=== PATIENT | female | born 1985 | race Caucasian/White ===

== ENCOUNTER 2025-05-28 18:34 | Emergency (ER) | payer MEDICAID, SELFPAY ==
--- NOTE | ~2025-05-28 | US_ITS ---
CLINICAL HISTORY: RUQ Pain Tenderness Exam: Ultrasound of the gallbladder. Comparison: None provided. Findings: Gallbladder is only mildly distended. No gallbladder wall thickening, pericholecystic fluid, or cholelithiasis identified. Negative sonographic Maldonado's sign. Common bile duct within normal limits. Impression: Negative gallbladder ultrasound. This document has been electronically signed by: Art Pierre MD on 05/28/2025 22:06:13
--- NOTE | ~2025-05-28 | CT_ITS ---
CLINICAL HISTORY: RLQ Pain R Flank Pain CT abdomen and pelvis with contrast Comparison: US - US ABDOMEN LIMITED - 05/28/25 21:12 EDT Findings: CT of the abdomen: Lung bases are clear. No acute bony abnormality. No focal hepatic lesions. Hepatic veins and portal vein are patent. Spleen, pancreas, gallbladder, adrenal glands, kidneys are unremarkable for acute findings. Moderate ingested contents within the stomach. Small bowel loops are of normal caliber. Small central mesenteric lymph nodes all measure less than 5 mm in short axis. There is mild haziness within the central mesenteric fat as well. CT pelvis: Appendix is normal. No colonic wall thickening or pericolonic inflammatory stranding. No dilated small bowel. No free fluid or free air. There is diastasis of the rectus abdominis muscle measuring 3.3 cm. Portions of the anterior aspect of the uterine fundus which extends into this diastasis. Additionally, there is a 9 mm anterior fascial defect within the upper pelvis near this diastasis. No bowel is seen within this. IMPRESSION: 1. Small mesenteric lymph nodes can be seen with mesenteric adenitis or mild enteritis. 2. Negative CT of the appendix. 3. Diastasis of the rectus abdominis muscle with fat containing ventral hernia. This document has been electronically signed by: Art Pierre MD on 05/28/2025 23:29:37
--- NOTE | 2025-05-28 18:48 | ED.ABDPAIN ---
HPI - Abdominal Pain General Chief Complaint: Abdominal Pain Stated Complaint: pain in abdomen Time Seen by Provider: 05/28/25 20:27 Source: patient Mode of arrival: ambulatory Limitations: language barrier ([employer] iPad utilized) History of Present Illness ED Provider: Dex DUPREE HPI narrative: The patient is a 39-year-old female presenting to the ED for evaluation of right-sided abdominal pain which has been occurring intermittently for the past few weeks, but became constant and more severe 2 days ago. The patient reports pain radiates from her right upper quadrant into the right lower quadrant and into her right flank. The patient denies associated fever/chills, nausea, vomiting, chest pain, shortness of breath, recent sick contacts, or recent trauma. Patient denies dysuria, hematuria, vaginal discharge, or irregular vaginal bleeding. The patient reported diarrhea during triage however denies this during this provider's interview. The patient reports history of a 13 years ago, and hemorrhoidectomy 12 years ago, denies other surgical abdominal history. Patient reports she was seen at urgent care today for her symptoms, reports underwent urinalysis which was ?all clear ? and referred to the emergency department for ?an ultrasound?. Related Data Allergies Allergy/AdvReac Type Severity Reaction Status Date / Time Penicillins (PCN) Allergy Unknown Verified 05/28/25 18:54 Review of Systems Review of Systems Yes all other systems are reviewed and are negative PMFSH Social History Social History Smoked in Last 30 Days: No Use of substances other than those prescribed or required for medical reasons: No Advance Directives: No Advance Directives Information Provided: No Physical Exam ED Vital Signs: Vital Signs - 24 hr 05/28/25 18:49 05/28/25 22:15 05/29/25 00:20 Temperature 98.1 F 97.8 F Pulse Rate 87 78 82 Respiratory Rate 16 16 14 Blood Pressure 148/78 H 121/80 125/83 Pulse Oximetry 100 98 96 Oxygen Delivery Method Room Air Room Air Room Air BMI result Body Mass Index 32.6 CONSTITUTIONAL: The patient appears non-toxic, well nourished and in no acute distress. Vital signs as documented. HEAD: Atraumatic, normocephalic. EYES: EOMs grossly intact, pupils equal, conjunctiva clear, no exudate. ENT: Nares patent, no discharge. Airway patent, no audible stridor, visible mucosa is pink and moist without noted lesions. NECK: Trachea is midline, no obvious masses or gross abnormalities. CHEST: Symmetric movement, normal appearance. LUNGS: LS present and CTAB, no w/r/r. Non-labored work of breathing. CARDIAC: Regular Rhythm, S1/S2 appreciated, no murmurs, rubs or gallops. ABDOMEN: Abdomen soft x4 quadrants, positive tenderness to palpation of the right upper quadrant and right lower quadrant, negative rebound, negative Rovsing's, negative Maldonado's, no palpable masses or organomegaly. : Deferred. EXTREMITIES: Normal tone, moves all extremities spontaneously without reported pain. No obvious acute injury or deformity noted. NEURO: Alert and oriented x3, CN II-XII appear grossly intact. Cerebellar Functioning grossly intact. No obvious sensory or motor deficits. Speech clear and appropriate. PSYCH: normal affect, appropriate eye contact, fluid speech, with appropriate response to questioning. No reported suicidality or homicidality. SKIN: Warm, dry, color appropriate, normal turgor. No rashes noted. Course Course Course Narrative: This is an RME: Additional HPI, ROS, PE not included below will be deferred to primary provider. RME assessment and note performed by: Inge Neff PA-C This is a [id number] speaking female, with a hx of chronic joint pain , who presents to the ER with concerns of right sided flank pain x 2 weeks. Reports pain was intermittent up until yesterday, now constant. Reports diarrhea. No nausea or vomiting. Denies chance of . hx of kidney stones 15 years ago. No urinary symptoms. Plan: Labs, UA, further Er eval needed Medical Decision Making Medical Decision Making MDM Narrative: 8:51 PM 05/28/2025 (Shaw DUPREE): The patient is a 39-year-old female presenting to the ED for evaluation of right-sided abdominal pain which has been occurring intermittently for the past few weeks, but became constant and more severe 2 days ago. The patient reports pain radiates from her right upper quadrant into the right lower quadrant and into her right flank. The patient denies associated fever/chills, nausea, vomiting, chest pain, shortness of breath, recent sick contacts, or recent trauma. Patient denies dysuria, hematuria, vaginal discharge, or irregular vaginal bleeding. The patient reported diarrhea during triage however denies this during this provider's interview. The patient reports history of a 13 years ago, and hemorrhoidectomy 12 years ago, denies other surgical abdominal history. Patient reports she was seen at urgent care today for her symptoms, reports underwent urinalysis which was ?all clear ? and referred to the emergency department for ?an ultrasound?. The patient's exam demonstrates right upper quadrant and right lower quadrant abdominal tenderness, negative Maldonado's, negative Rovsing's, negative rebound, patient reports the pain she has been experiencing is greater in the right upper quadrant, however upon exam reports tenderness is greater in the right lower quadrant. The patient is otherwise well-appearing, nontoxic. Laboratory evaluation demonstrates no leukocytosis, anemia, electrolyte abnormality, or ROSA. The patient's LFTs are unremarkable, lipase is normal. The patient's urinalysis from urgent care is not available in our EMR, patient has been requested to provide an additional urine sample, and we will add on hCG and right upper quadrant ultrasound. If ultrasound is nondiagnostic the patient will be sent for CT abdomen to rule out other abdominal pathology. 12:12 AM 05/29/2025 (Shaw DUPREE): Patient's ultrasound showed a normal gallbladder, CT has resulted and shows small mesenteric lymph nodes potentially associated with mesenteric adenitis versus mild enteritis. The appendix is normal. The patient is requesting discharge home, patient will be treated with Toradol and Tylenol, and discharge instructions to follow up with PCP. Admission/Observation Consideration of admission/observation: Escalation of care including admission/observation considered Lab Data MDM Lab Attestation statement: I reviewed the patient's lab results. 05/28/25 19:36 05/28/25 19:36 Labs: Lab Results 05/28/25 05/28/25 Range/Units 19:36 22:29 WBC 8.7 (4.8-10.8) X10*3/uL RBC 4.41 (4.20-5.50) X10*6/uL Hgb 12.3 (12.0-16.0) g/dl Hct 37.3 (37.0-47.0) % MCV 84.6 (80.0-98.0) fL MCH 27.9 (27.0-33.0) pg MCHC 33.0 (31.0-35.0) g/dl RDW 12.8 (11.0-16.0) % Plt Count 390 (160-400) X10*3/uL MPV 9.4 (9.4-12.3) fL Immature Gran % (Auto) 0.1 (0.0-0.4) % Neut % (Auto) 59.3 (45-73) % Lymph % (Auto) 31.8 (20-40) % [place] % (Auto) 6.5 (2-11) % Eos % (Auto) 1.8 (0-4) % Baso % (Auto) 0.5 (0-2) % Lymph # (Auto) 2.8 (1.2-4.9) X10*3/uL [place] # (Auto) 0.6 (0.1-1.2) X10*3/uL Eos # (Auto) 0.2 (0.0-0.4) X10*3/uL Baso # (Auto) 0.0 (0.0-0.2) X10*3/uL Abs Immat Gran (auto) 0.01 (0.00-0.03) X10*3/uL Absolute Neuts (auto) 5.1 (2.0-8.3) x10*3/uL Absolute Nucleated RBC 0.000 (0.0-0.012) X10*3/uL Nucleated RBC % (auto) 0.0 (0.0-0.2) /100WBC Sodium 139 (135-145) mmol/L Potassium 4.2 (3.3-5.1) mmol/L Chloride 108 (96-108) mmol/L Carbon Dioxide 27 (22-29) mmol/L Anion Gap 8 L (12-20) BUN 7 L (9-16) mg/dL Creatinine 0.66 (0.5-1.4) mg/dL Estim Creat Clear Calc 127.2 Estimated GFR > 60 Random Glucose 109 (60-115) mg/dL Calcium 8.5 (8.4-10.2) mg/dL Magnesium 2.2 (1.6-2.6) mg/dL Total Bilirubin 0.1 (0.0-1.0) mg/dL Direct Bilirubin < 0.2 (0.0-0.5) mg/dL AST 17 (5-31) U/L ALT 16 (0-31) U/L Alkaline Phosphatase 81 (39-117) U/L Total Protein 7.6 (6.5-8.0) g/dL Albumin 4.1 (3.5-5.0) g/dL Lipase 17 (8-78) U/L Beta HCG, Quant < 2 mIU/mL Urine Color Yellow Urine Appearance Clear Urine pH 8.0 (5.0-9.0) Ur Specific [place] 1.020 (1.005-1.025) Urine Protein Negative (Neg-Trace) mg/dL Urine Glucose (UA) Negative (Negative) mg/dL Urine Ketones Negative (Negative) mg/dL Urine Blood Trace H (Negative) Urine Nitrite Negative (Negative) Ur Leukocyte Esterase Negative (Negative) Urine RBC 3-5 H (0-2) /HPF Urine WBC 0-5 (0-5) /HPF Ur Squamous Epith Cells 0-2 (0-2) /HPF Urine Bacteria None Seen (None Seen) Hyaline Casts 0-2 (0-2) /LPF Radiology Impression Discussion of test interpretation with radiology: I have reviewed the radiologist's reading. Radiologist Impression: Exam: Ultrasound of the gallbladder. Comparison: None provided. Findings: Gallbladder is only mildly distended. No gallbladder wall thickening, pericholecystic fluid, or cholelithiasis identified. Negative sonographic Maldonado's sign. Common bile duct within normal limits. Impression: Negative gallbladder ultrasound. This document has been electronically signed by: Art Pierre MD on 05/28/2025 22:06:13 CT abdomen and pelvis with contrast Comparison: US - US ABDOMEN LIMITED - 05/28/25 21:12 EDT Findings: CT of the abdomen: Lung bases are clear. No acute bony abnormality. No focal hepatic lesions. Hepatic veins and portal vein are patent. Spleen, pancreas, gallbladder, adrenal glands, kidneys are unremarkable for acute findings. Moderate ingested contents within the stomach. Small bowel loops are of normal caliber. Small central mesenteric lymph nodes all measure less than 5 mm in short axis. There is mild haziness within the central mesenteric fat as well. CT pelvis: Appendix is normal. No colonic wall thickening or pericolonic inflammatory stranding. No dilated small bowel. No free fluid or free air. There is diastasis of the rectus abdominis muscle measuring 3.3 cm. Portions of the anterior aspect of the uterine fundus which extends into this diastasis. Additionally, there is a 9 mm anterior fascial defect within the upper pelvis near this diastasis. No bowel is seen within this. IMPRESSION: 1. Small mesenteric lymph nodes can be seen with mesenteric adenitis or mild enteritis. 2. Negative CT of the appendix. 3. Diastasis of the rectus abdominis muscle with fat containing ventral hernia. This document has been electronically signed by: Art Pierre MD on 05/28/2025 23:29:37 Medications Administered Discontinued Medications Generic Name Dose Route Start Last Admin Trade Name Freq PRN Reason Stop Dose Admin Acetaminophen 975 mg 05/29/25 00:08 05/29/25 00:22 Acetaminophen 325 Mg Tablet PO 05/29/25 00:09 975 mg ONCE ONE Administration Iohexol 100 ml 05/28/25 22:54 05/28/25 22:58 Iohexol 350 Mg/Ml 100 Ml Infus..Btl IV 05/28/25 22:55 85 ml ONCE ONE Administration Ketorolac Tromethamine 15 mg 05/29/25 00:08 05/29/25 00:22 Ketorolac Tromethamine 15 Mg/Ml Vial IVPUSH 05/29/25 00:09 15 mg ONCE ONE Administration Discharge Plan Discharge Clinical Impression: Mesenteric adenitis Patient Disposition: Home, Self-Care Instructions: Mesenteric Adenitis (ED) Additional Instructions: Thank you for choosing [facility]'s Emergency Department for your care today. Thankfully your laboratory evaluation, gallbladder ultrasound, and CT of your abdomen today show no evidence of an acute surgical process requiring surgical intervention, admission to the hospital or continued ED observation, and it is safe to discharge you home. Your CT does show inflamed mesenteric lymph nodes consistent with mesenteric adenitis versus enteritis. Both of these are inflammatory and not infectious processes which should improve with time and anti-inflammatories such as ibuprofen and Tylenol. There is no indication for antibiotics. You should take alternating (staggered) doses of ibuprofen 600mg and Tylenol 1000mg every 4 hours as needed for any additional pain. Please stay well hydrated and get plenty of rest. Please follow up with your primary care physician for re-evaluation, additional management of your symptoms, and continued preventative care. If you do not have a primary care physician, please call the [facility] at [phone] to establish a new primary care physician. While waiting to establish your new primary care physician, you can call our [facility] at [phone] for non-emergency needs. Please return to the emergency department if you develop a severe or sudden change in your symptoms, a fever over 100.4 that does not improve with Tylenol or Ibuprofen, recurrent vomiting, or any other new or worsening symptoms or concerns. Print Language: Sinhala
[2025-05-28 18:49] VITALS: BP 148/78; PULSE 87; RESP 16; TEMP 36.7; O2SAT 100; BMI 32.6
[2025-05-28 19:41] LABS: Hematocrit 37.3 % (37.0-47.0); Hemoglobin 12.3 g/dl (12.0-16.0); Imm Gran Abs Auto 0.01 X10*3/uL (0.00-0.03); Imm Gran Pct Auto 0.1 % (0.0-0.4); Lymphocytes Absolute Auto 2.8 X10*3/uL (1.2-4.9); MANUAL DIFF FLAG NO; Mean Corpuscular HGB Conc 33.0 g/dl (31.0-35.0); Mean Corpuscular Hemoglobin 27.9 pg (27.0-33.0); Mean Corpuscular Volume 84.6 fL (80.0-98.0); NRBC Abs Auto 0.000 X10*3/uL (0.0-0.012); NRBC Pct Auto 0.0 /100WBC (0.0-0.2); Platelet Count 390 X10*3/uL (160-400); Red Blood Count 4.41 X10*6/uL (4.20-5.50); White Blood Count 8.7 X10*3/uL (4.8-10.8)
[2025-05-28 19:59] LABS: Alanine Aminotransferase 16 U/L (0-31); Albumin Level 4.1 g/dL (3.5-5.0); Alkaline Phosphatase 81 U/L (39-117); Anion Gap 8 (12-20); Aspartate Amino Transferase 17 U/L (5-31); Blood Urea Nitrogen 7 mg/dL (9-16); Calcium 8.5 mg/dL (8.4-10.2); Carbon Dioxide 27 mmol/L (22-29); Chloride 108 mmol/L (96-108); Creatinine Clr Calc Pharmacy 127.2; Estimated Glomerular Filt Rate > 60; Lipase 17 U/L (8-78); Magnesium 2.2 mg/dL (1.6-2.6); Potassium 4.2 mmol/L (3.3-5.1); Sodium 139 mmol/L (135-145); Total Protein 7.6 g/dL (6.5-8.0)
--- OUTSIDE RECORDS SUMMARY | 2025-05-28 20:55 | XMS_ITS | Clinical Summary ---
Author Organization [address] [facility] Address [address] [place] [address] Phone Care Team Providers Care Research Assistant Name Role Phone Renae Maza Primary Care Provider + Allergies Active Allergy Reactions Criticality Noted Date Comments Penicillin G Medium 10/12/2016 Other Reaction(s): Rash/Dermatitis Medications acetaminophen (TYLENOL) 500 mg tablet acetaminophen 500 mg tablet TAKE 2 TABLETS BY MOUTH THREE TIMES DAILY NEEDED 04/08/20 19 Active biotin 5 mg tablet Take 1 Tablet by mouth. 05/13/20 21 Active cholecalciferol (VITAMIN D-3) 1,250 mcg (50,000 unit) capsule cholecalciferol (vitamin D3) 1,250 mcg (50,000 unit) capsule TAKE 1 CAPSULE BY MOUTH ONE DAY A WEEK 01/15/20 21 Active chorionic gonadotropin (PREGNYL) 10,000 unit injection Pregnyl 10,000 unit intramuscular solution Active clindamycin (CLEOCIN) 150 mg capsule Take 450 mg by mouth. 04/03/20 17 Active clomiPHENE (CLOMID) 50 mg tablet clomiphene citrate 50 mg tablet TAKE 2 TABLETS BY MOUTH DAILY FOR 5 DAYS 2 TABLET. BY MOUTH DAILY 3-7 OF CYCLE Active cyclobenzaprine (FLEXERIL) 10 mg tablet TAKE 1 TABLET BY MOUTH DAILY NEEDED 11/11/19 22 Active diazePAM (VALIUM) 5 mg tablet diazepam 5 mg tablet TAKE 1 TABLET BY MOUTH THREE TIMES DAILY NEEDED MUSCLE SPASM Active famotidine (PEPCID) 20 mg tablet famotidine 20 mg tablet TAKE 1 TABLET BY MOUTH TWICE DAILY BEFORE A MEAL FOR HEARTBURN/STOMACH 01/15/20 21 Active gabapentin (NEURONTIN) 100 mg capsule gabapentin 100 mg capsule TAKE 1 TO 2 CAPSULES BY MOUTH DAILY NEEDED 02/03/20 20 Active ibuprofen (ADVIL,MOTRIN) 800 mg tablet ibuprofen 800 mg tablet TK 1 T PO ONCE 04/08/20 19 Active ketoconazole (NIZORAL) 2 % shampoo APPLY TOPICALLY TO THE SKIN DAILY NEEDED 11/11/19 22 Active letrozole (FEMARA) 2.5 mg tablet letrozole 2.5 mg tablet TAKE 3 TABLETS BY MOUTH DAILY FOR 5 DAYS 09/03/19 20 Active lidocaine (LIDODERM) 5 % patch APPLY 1 PATCH TOPICALLY TO AFFECTED AREA OF PAIN ON SKIN ONCE DAILY FOR 12 HOURS ON AND 12 HOURS OFF 09/11/19 20 Active melatonin 10 mg tablet TAKE 1 TABLET BY MOUTH EVERY NIGHT AT BEDTIME 11/18/19 22 Active meloxicam (MOBIC) 7.5 mg tablet TAKE 1 TABLET BY MOUTH DAILY NEEDED 09/08/19 22 Active metFORMIN (GLUCOPHAGE) 500 mg tablet TAKE 1 TABLET BY MOUTH TWICE DAILY 11/04/19 22 Active naproxen sodium (ANAPROX) 550 mg tablet naproxen sodium 550 mg tablet TAKE 1 TABLET BY MOUTH TWICE DAILY FOR 15 DAYS NEEDED FOR PAIN WITH FOOD Active nystatin (MYCOSTATIN) 100,000 unit/gram powder Apply topically. 0 19 Active oxyCODONE (ROXICODONE) 5 mg immediate release tablet oxycodone 5 mg tablet TK 1 T PO Q 4 TO 6 H PRN FOR MODERATE PAIN Active oxymetazoline (Nasal [place], oxymetazoline,) 0.05 % nasal spray 1 [place] by Nasal route. 03/10/20 19 Active pantoprazole (PROTONIX) 20 mg EC tablet pantoprazole 20 mg tablet,delayed release TK 1 T PO QAM B [place] FOR HEARTBURN Active prazosin (MINIPRESS) 1 mg capsule prazosin 1 mg capsule 09/03/19 20 Active sucralfate (CARAFATE) 1 gram tablet Take 1 g by mouth. 05/13/20 21 Active SUMAtriptan (IMITREX) 100 mg tablet sumatriptan 100 mg tablet TAKE 1 TABLET BY MOUTH NEEDED ONLY 02/25/20 20 Active tiZANidine (ZANAFLEX) 4 mg tablet take 1 tablet by mouth every 6 hours if needed for muscle spasm 07/30/20 19 Active topiramate (TOPAMAX) 200 mg tablet topiramate 200 mg tablet Active venlafaxine XR (EFFEXOR-XR) 150 mg 24 hr capsule venlafaxine ER 150 mg capsule,extended release 24 hr 01/05/20 17 Active Active Problems Problem Noted Date Diagnosed Date H. 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 Chronic low back pain 10/13/2016 PTSD (post-traumatic stress disorder) 10/13/2016 Overview (08/05/2024): Followed by therapist @[facility] Riccardo Yanez, Celina Stern [facility] Vitamin D deficiency 10/13/2016 Social History Tobacco Use Types Packs/Day Years Used Date Smoking Tobacco: Never Tobacco Cessation:Counseling Given: Not Answered Alcohol Use Standard Drinks/Week Comments Never 0 (1 standard drink = 0.6 oz pur e alcohol) Comments Unknown Sex and Gender Information Value Date Recorded Sex Assigned at Not on file Legal Sex Female 9:43 AM EST Gender Identity Not on file Sexual Orientation Not on file Obstetrics History Last Filed Vital Signs Vital Sign Reading Time Taken Comments Blood Pressure 122/81 09/29/2024 1:52 PM EST Pulse 100 09/29/2024 1:52 PM EST Temperature 36.5 C (97.7 F) 09/29/2024 1:52 PM EST Respiratory Rate - - Oxygen Saturation - - Inhaled Oxygen Concentration - - Weight 86.4 kg (190 lb 8 oz) 09/29/2024 1:52 PM EST Height 154.9 cm (5' 1 ) 09/29/2024 1:52 PM EST Body Mass Index 35.99 09/29/2024 1:52 PM EST Plan of Treatment Health Maintenance Due Date Last Done Comments HPV Vaccines (1 - 3-dose SCDM series) 2013 Cervical Cancer Screening: Pap Smear 11/01/2019 10/31/2016, 10/31/2016 COVID-19 Vaccine (3 - Pfizer risk series) 02/14/2021 01/17/2021, 12/24/2020 Social Influencers of Health Screening 07/04/2022 Depression Screening 2024 Influenza Vaccine (#1) 2025 3, 04/10/2017, 08/10/2016 Cholesterol Screening (Lipid Panel) 03/06/2029 03/06/2024, 03/06/2024, 03/01/2022, Additional history exists DTaP,Tdap,and Td Vaccines (5 - Td or Tdap) 10/29/2033 10/30/2023, 08/31/2022, 06/01/2016, Additional history exists RSV Immunization Adult Patients (1 - 1-dose 75+ series) 2061 HIV Screening Completed 05/12/2019 Hepatitis C Screening Completed 06/14/2022, 019 MMR Vaccines Aged Out 11/16/2022, 08/07, 04/12/2022, Additional history exists No longer eligible based on patient's age to complete this topic Hepatitis B Vaccines Completed 06/27/2024, 08/10/2016, 06/01/2016 HIB Vaccines Aged Out No longer eligi ble based on patient's age to complete this topic Hepatitis A Vaccines Aged Out No long er eligible based on patient's age to complete this topic IPV Vaccines Aged Out No longer eligi ble based on patient's age to complete this topic Meningococcal ACWY Vaccine Aged Out N o longer eligible based on patient's age to complete this topic Meningococcal B Vaccine Aged Out No l onger eligible based on patient's age to complete this topic Pneumococcal Vaccine: Pediatrics (0 to 5 Years) and At-Risk Patients (6 to 49 Years) Aged Out No longer eligible based on patient's age to complete this topic RSV Immunization Patients Under 20 months Aged Out No longer eligible based on patient's age to complete this topic Varicella Vaccines Aged Out No longer eligible based on patient's age to complete this topic Procedures Procedure Name Priority Date/Time Associated Diagnosis Comments LIPID PANEL Routine 01/21/2021 HM HPV Routine 10/31/2016 from Last 3 Months or Most Recently Relevant to Health Maintenance Results * Lipid panel (01/21/2021) LDL/HDL Ratio 0 Comment:no interpretation, a bstracted Triglycerides 0 mg/dL Comment:no interpretation, a bstracted Cholesterol 0 mg/dL Comment:no interpretation, a bstracted HDL 0 mg/dL Comment:no interpretation, a bstracted LDL Cholesterol 0 mg/dL Comment:no interpretation, a bstracted Blood Venous blood specimen / Unknown Historical Provider LAB BLOOD ORDERABLES Jo-Ann l Result * Cervical Cancer Screening: HPV (10/31/2016) Cervical Cancer Screening: HPV negative, abstracted Historical Provider HEALTH MAINTENANCE Final Result from Last 3 Months or Most Recently Relevant to Health Maintenance Insurance MEDICAID - [place] Care Teams Research Assistant Relationship Specialty Start Date End Date Renae Maza PA [address] [facility] [address] [place] [address] PCP - General Primary Care 06/25/24
--- OUTSIDE RECORDS SUMMARY | 2025-05-28 20:55 | XMS_ITS | Clinical Summary ---
Author Organization [facility] Address [address] [place] [address] Care Team Providers Care Assembler Small Products Name Role Phone Neyda Salas LACTATION CONSULTANT Primary Care Provider [phone] Source Comments PLEASE NOTE, if this patient is a minor, it may be UNLAWFUL to discuss sensitive information that is contained in these records (such as FAMILY PLANNING, MENTAL HEALTH or SUBSTANCE ABUSE) with the minor patient's parent or other person without the patient's specific authorization.[facility] Allergies Active Allergy Reactions Criticality Noted Date Comments Latex 07/10/2022 Itchiness Itchiness Penicillins Rash High 08/10/2016 Medications venlafaxine (EFFEXOR-XR) 150 mg 24 hr capsuleIndicati ons:Anxiety and depression Take 150 mg by mouth every morning PER PSYCH 0 7 Active traZODone (DESYREL) 100 mg tabletIndicatio ns:Insomnia due to anxiety and fear Take 100 mg by mouth nightly at bedtime PER PSYCH 0 7 Active back braceIndication s:Chronic bilateral low back pain with sciatica, sciatica laterality unspecified LUMBAR SUPPORT BACK BRACE. Dx: M54.40 1 Each 8 Active miscellaneous medical supply miscIndications :Acute carpal tunnel syndrome, right by miscellaneous route nightly at bedtime RIGHT NEOPRENE WRIST SPLINTS. Dx: G56.01. Wear nightly. 1 Each 9 Active oxymetazoline (VICKS SINEX ULTRA FINE MIST 12) 0.05 % mistIndications :Upper respiratory tract infection, unspecified type Place 1 [place] into the nostril(s) 2 (two) times daily 14.7 mL 9 Active nystatin (MYCOSTATIN) 100,000 unit/gram powderIndicatio ns:Candidal intertrigo Apply topically 4 (four) times daily 15 g 1 9 Active ibuprofen 800 mg tabletIndicatio ns:Chronic bilateral low back pain with sciatica, sciatica laterality unspecified Take 1 Tab by mouth 3 (three) times daily as needed for pain Take with food. Stop ibuprofen 600 mg and meloxicam. 90 Tab 1 9 Active acetaminophen (TYLENOL) 500 mg tablet Take 1 Tab by mouth every 6 (six) hours as needed for pain 90 Tab 9 Active tiZANidine (ZANAFLEX) 4 mg tabletIndicatio ns:Chronic bilateral low back pain with sciatica, sciatica laterality unspecified take 1 tablet by mouth every 6 hours if needed for muscle spasm 90 Tab 1 9 Active miscellaneous medical supply miscIndications :Bilateral carpal tunnel syndrome,Fibrom yalgia affecting hand,Chronic bilateral low back pain with sciatica, sciatica laterality unspecified by miscellaneous route once daily Order Shower chair with handle, daily. Dx:G56.03,M79.7, M54.40. Need: 5 yr. 1 Each 9 Active lidocaine (LIDODERM) 5 % patchIndication s:LUQ pain APPLY 1 PATCH TOPICALLY TO AFFECTED AREA OF PAIN ON SKIN ONCE DAILY FOR 12 HOURS ON AND 12 HOURS OFF 0 Active prazosin (MINIPRESS) 1 mg capsuleIndicati ons:Fatigue, unspecified type TAKE 1 CAPSULE BY MOUTH ONCE DAILY AT BEDTIME. 0 Active miscellaneous medical supply miscIndications :Bilateral carpal tunnel syndrome by miscellaneous route once daily Left and Right NEOPRENE WRIST SPLINT. M79.9. Wear daily. Dx: G56.03, M79.7, Need: lifetime 2 Each 0 Active gabapentin (NEURONTIN) 100 mg capsule TK 1 TO 2 CS PO D PRN 0 Active triamcinolone acetonide (KENALOG) 0.5 % creamIndication s:Rash Apply topically 2 (two) times daily To lower legs 30 g 2 0 Active cholecalciferol , vitamin D3, (VITAMIN D3) 1,250 mcg (50,000 unit) capsuleIndicati ons:Mild vitamin D deficiency Take 1 Capsule by mouth once a week 4 Capsule 4 1 Active miscellaneous medical supply miscIndications :Use of cane as ambulatory aid,Arthralgia, unspecified joint,Chronic pain of multiple joints,Toe pain, chronic, right Order toilet seat raiser with handle, Use daily. Need: lifetime 1 Each 1 Active biotin 5 mg tabIndications: Hair loss Take 1 Tablet by mouth once daily For hair 90 Tablet 1 1 Active metroNIDAZOLE (METROGEL) 0.75 % vaginal gelIndications: BV (bacterial vaginosis) INSERT 1 APPLICATORFUL VAGINALLY TWICE DAILY FOR 5 DAYS 140 g 2 Active meclizine (ANTIVERT) 25 mg tabletIndicatio ns:Vertigo Take 1 Tablet by mouth every 8 (eight) hours as needed for nausea or dizziness 30 Tablet 1 2 Active ferrous sulfate 325 mg (65 mg iron) tabletIndicatio ns:Low serum iron Take 1 Tablet by mouth once daily with breakfast 90 Tablet 1 2 Active LORazepam (ATIVAN) 2 mg tablet Take 2 mg by mouth 2 Active PNV,calcium 09-ltus-jwhtj acid ( VITAMIN PLUS LOW IRON) 27 mg iron- 1 mg tab Vitamins Plus Low Iron 27 mg iron-1 mg tablet TAKE 1 TABLET BY MOUTH EVERY DAY Active cyclobenzaprine (FLEXERIL) 10 mg tablet Take 10 mg by mouth once daily as needed 2 Active diazePAM (VALIUM) 5 mg tablet diazepam 5 mg tablet TAKE 1 TABLET BY MOUTH THREE TIMES DAILY NEEDED MUSCLE SPASM Active metFORMIN (GLUCOPHAGE) 500 mg tablet Take 500 mg by mouth 2 Active clotrimazole-be tamethasone (LOTRISONE) 1-0.05 % creamIndication s:Tinea pedis of right foot Apply topically 2 (two) times daily At feet 30 g 1 3 Active pantoprazole (PROTONIX) 40 mg EC tabletIndicatio ns:Gastroesopha geal reflux disease with esophagitis without hemorrhage Take 1 Tablet by mouth 2 (two) times daily For heartburn 180 Tablet 4 Active SUMAtriptan succinate (IMITREX) 100 mg tabletIndicatio ns:Headaches Take 1 Tablet by mouth once daily as needed for migraine 15 Tablet 2 5 Active Active Problems Problem Noted Date Diagnosed Date History of Helicobacter pylori infection 023 Requires assistance with activities of daily radha ing (ADL) 09/20/2022 H. pylori infection 06/21/2022 Vertigo 02/28/2022 PCOS (polycystic ovarian syndrome): sees fertili ty obgyn 08/14/2021 Right wrist pain 08/14/2021 Use of cane as ambulatory aid 01/14/2021 Tinnitus of right ear, TM perforation small 07/07 DUB (dysfunctional uterine bleeding) 10/15/2018 Otalgia, right ear 05/11/2018 Overview (06/17/2019): 04/17/18 - Seen by ENT for R ear pain x 4 months. Small Tm perforation inferiorly. The otalgia most likely due to pain from TMJ inflammation. F/U dental. IF no resolution of pain, will consider reeval with flexible laryngoscopy. F/U 6 months for TM 02/27/19 - ENT F/U: Pt's otalgia is 2/2/ TMJ. May benefit from use of warm compress application, massage, and NSAID use for relief of her TMJ dysfunction. She may benefit from use of a dental appliance to prevent bruxism in the future. Recommend MRA of the head for eval of her pulsatile tinnitus. 03/14/19 - MRA - negative 04/23/19 - ENT F/U: MRA results reviewed (unremarkable). Can use diuretic to decrease volume of blood vessels to reduce whooshing sound. Tx: HCTZ 25 mg. Labs in 3 weeks. F/U 6 wks. 06/10/19 - ENT F/U: reviewed normal MRI result, referred to vestibular rehab. D/c HCTZ. F/U 3 mos Ventral hernia without obstruction or gangrene 0 04/15/2018 Overview (02/11/2019): 03/23/18 - Pt seen at [facility] c/o RLQ abd pain. CT abdomen/pelvis showed small right infraumbilical anterior abdominal wall hernia containing mesenteric fat with mild surrounding inflammatory changes suggesting acute process. This may explain the patient's site of focal tenderness and can be correlated with physical examination. No herniating bowel loops. Pt was discharged to f/u gen surg for eval. 05/13/18 - Gen surg eval: considering small size of hernia and minimal sxs, recommend watchful waiting. 01/09/19 - Seen at [facility] ED c/o abdominal pain, nausea, and diarrhea for 6-7 episodes since this AM. CT abdomen/Pelvis W/ contrast: no acute findings with exception of mild wall thickening suggestive of mild colitis. Does have mild leukocytosis on labs likely due to viral gastroenteritis and dehydration, feeling better with IV fluids. Pain in both feet 02/07/2018 Infertility - F/U [facility] 8 Overview (10/13/2017): 10/12/16 - DIRECTOR MUSEUM OR ZOO [facility]: seen for infertility and DUB suspicious for PCOS. Plans: Labs ordered (TCH, prolactin, DHEA-S, CMP, FSH, A1c, serum test, testosterone free & total) - HIGH free and total testosterone. DHEA-S WNL. 10/31/16 - [employer] [facility] ZOO F/U: Orderd placed: PAP & HPV, referral to external adult genetic counseling. 03/01/17 - DIRECTOR MUSEUM OR ZOO F/U: c/o b/l pelvic pain and dysuria and currently menstruating. Labs ordered: Factor 5, anticardiolipin An, Lupus anticoagulant, Gc, chlamydia. BD affirm, Urine Cx. F/U in 1 month labs. 03/22/17: DIRECTOR MUSEUM OR ZOO F/U infertility. Plan: continue to conceive and if unsuccessful w/i 6 months - 1 year consider [facility] referral. Fibromyalgia 10/18/2016 Overview (10/18/2016): Dx via [facility] with tender points 10/10/16 Dr. Rankin PTSD (post-traumatic stress disorder) 08/17/2016 Overview (10/04/2016): [facility] Depression, major, recurrent, severe with psycho sis 08/17/2016 Overview (08/17/2016): [facility] Vitamin D deficiency 08/11/2016 Anxiety and depression 08/10/2016 Insomnia due to anxiety and fear 08/10/2016 Obesity (BMI 30.0-34.9) 08/10/2016 Thyroiditis 05/02/2016 Chronic bilateral low back pain 05/02/2016 Overview (04/03/2018): Started 200910/02/17 - [facility] c/o low back pain requesting injections. Gabapentin #90 refilled. XRAYS of lumbar and thoracic spine ordered - both neg. 03/12/18 - 04/22/18: [facility] PT 3x/wk x 6 week SAB (spontaneous ) x 2 in [place] with C- section x 1 05/02/2016 Immunizations Immunization Administration Dates Next Due Flu, Preservative Free 04/10/2017 Hep B, Adult/Adol (XDNSQTZ-V-WAIIQ/RECOMBIVAX-ADULT) 08/10/2016,06/01/2016 Hep B,adult,adjuvanted (HEPLISAV) 06/27/2024 INFLUENZA, SEASONAL, INJECTABLE 08/31/2022,08/10 MMR (MMR II/Priorix) 11/16/2022,09/02/19 23,04/12/2022,2015,12/25/2015 TDAP 10/30/2023,08/31/2022,05/02/2016 Td (adult), 5 Lf tetanus tox oid (Tenivac), preservative free 06/01/2016 Social History Tobacco Use Types Packs/Day Years Used Date Smoking Tobacco: Never Smokeless Tobacco: Never Tobacco Cessation:Counseling Given: Yes Alcohol Use Standard Drinks/Week Comments No 0 (1 standard drink = 0.6 oz pur e alcohol) Social Connections Answer Date Recorded Connectedness 0 06/19/2023 Financial Resource Strain Answer Date R ecorded Financial Resource Strain 0 2022 Stress Answer Date Recorded Stress 0 06/19/2023 Physical Activity Answer Date Recorded Physical Activity 0 11/24/2020 Food Insecurity Answer Date Recorded Food 0 06/19/2023 Transportation Needs Answer Date Record ed Transportation 0 06/19/2023 Housing Stability Answer Date Recorded Housing 0 06/19/2023 Safety and Environment Answer Date David rded How often does anyone, inclu ding family and friends, physically hurt you? 1 06/27/2024 Utilities Answer Date Recorded Utilities 0 06/19/2023 Employment Answer Date Recorded Stress 0 11/24/2020 Comments No Sex and Gender Information Value Date Recorded Sex Assigned at Female 05/22/2017 10:45 AM PDT Legal Sex Female 8:57 AM PDT Gender Identity Female 05/22/2017 10:45 AM PDT Sexual Orientation Straight 05/22/2017 10 :45 AM PDT Last Filed Vital Signs Vital Sign Reading Time Taken Comments Blood Pressure 98/80 11/25/2024 1:22 PM EDT Pulse 97 11/25/2024 1:22 PM EDT Temperature 36.8 C (98.3 F) 11/25/2024 1:22 PM EDT Respiratory Rate 16 11/25/2024 1:22 PM EDT Oxygen Saturation 99% 11/25/2024 1:22 PM EDT Inhaled Oxygen Concentration - - Weight 87.9 kg (193 lb 12.8 oz) 11/25/2024 1:22 PM EDT Height 157.5 cm (5' 2 ) 10/03/2024 1:58 PM EST Body Mass Index 35.45 10/03/2024 1:58 PM EST Plan of Treatment Upcoming Encounters Date Type Department Care Team (Late st Contact Info) Description 06/30/2025 1:00 PM EST Office Visit [facility] [address] [phone] Neyda Salas FNP [address] [place] [address] Theron Dick [address] [place] [id number] Health Maintenance Due Date Last Done Comments Anxiety Screening 1986 HPV Screening (self-collect) 1986 HPV Screening 1986 Imm-HPV (1 - 3-dose SCDM series) 2013 Depression Monitoring 12/31/2024 10/03/2024 , 06/27/2024, 03/04/2024, Additional history exists Xkt-LJCIR-01 (3 - season) 2025 021, 12/24/2020 Imm-Influenza (#1) 2025 08/31/2022, 0 04/10/2017, 08/10/2016 Relationship Safety Screening/Counseling 06/27/2025 06/27/2024, 06/19/2023, 06/14/2022, Additional history exists Annual Wellness (Adult): Indicated (All Coverage) 11/25/2025 11/25/2024, 06/27/2024, 06/19/2023, Additional history exists Hypertension Screening (#1) 11/25/2025 Tobacco Screening 11/25/2025 11/25/2024 Lipid Screening 03/06/2027 03/06/2024, 06/06, 03/01/2022, Additional history exists Diabetes Screening 06/27/2027 06/27/2024, 0 03/06/2024, 01/16/2023, Additional history exists Pap Smear 11/26/2027 11/25/2024, 12/28/2017 Cervical Cancer Screening 11/25/2029 Pap + HPV 11/25/2029 11/25/2024, 12/28/2017 Imm-DTaP/Tdap/Td (5 - Td or Tdap) 10/29/2033 10/30/2023, 08/31/2022, 06/01/2016, Additional history exists HIV Screening Completed 05/12/2019, 07/06, 05/02/2016 Syphilis Screening Discontinued 05/12/2019, 07/19/2018 Hepatitis C Screening Completed 06/14/2022 , 06/14/2022, 07/29/2019, Additional history exists Imm-Hepatitis B Completed 06/27/2024, 12/2016, 06/01/2016 Alcohol and Drug Screen Completed 10/03/19, 03/04/2024, 06/19/2023, Additional history exists Cervical Ablation/Cold-Knife Conization Discontinued Cervical Cryotherapy Discontinued Colposcopy Discontinued Excision/Leep Discontinued HPV Genotyping Discontinued Vaginal Pap Discontinued Vulvoscopy Discontinued Procedures Procedure Name Priority Date/Time Associated Diagnosis Comments THINPREP IMAGING PAP, HPV MRNA E6/E7 RFLEX HPV 16,18/45 CT/NG Routine 11/25/2024 1:53 PM EDT Encounter for Papanicolaou smear of vagina as part of routine gynecological examination Encounter for screening for human papillomavirus (HPV) HGBA1C W/MPG Routine 06/27/2024 3:45 PM EST Routine general medical examination at a [facility] facility LIPID PANEL Routine 03/06/2024 1:33 PM EDT Dyslipidemia HEPATITIS C AB W/RFLX HCV RNA, QT, RT PCR Routine 06/14/2022 10:01 AM EST Routine general medical examination at a [facility] facility Dyspepsia Gastroesophageal reflux disease with esophagitis without hemorrhage ANTIBODY HIV-1&HIV-2 SINGLE RESULT Routine 05/12/2019 3:30 PM EDT Neuropathy Mild vitamin D deficiency FTA-ABS, SERUM Routine 05/12/2019 3:30 PM EDT Neuropathy from Last 3 Months or Most Recently Relevant to Health Maintenance Results * THINPREP IMAGING PAP, HPV MRNA E6/E7 RFLEX HPV 16,18/45 CT/NG (11/25/2024 1:53 PM EDT) CHLAMYDIA TRACHOMATIS RNA, TMA NOT DETECTED NOT DETECTED [facility] NEISSERIA GONORRHOEAE RNA, TMA NOT DETECTED NOT DETECTED [facility] COMMENT [facility] CLINICAL INFORMATION See Note [facility] Comment:None given LMP See Note [facility] Comment:11/07/24 PREV. PAP See Note [facility] Comment:NONE GIVEN PREV. BX See Note [facility] Comment:NONE GIVEN SOURCE See Note [facility] Comment:Cervix, Endocervix STATEMENT OF ADEQUACY See Note [facility] Comment: Satisfactory for evaluation. Endocervical/transformation zone component present. INTERPRETATION/RESU LT See Note [facility] Comment: Cytology Results: Negative for intraepithelial lesion or malignancy. COMMENT See Note [email or web address] [facility] Comment: This Pap test has been evaluated with computer assisted technology. FIXED ASSETS ACCOUNTANT See Note [facility] [email or web address] [facility] Comment: DCR, CT(ASCP) CT screening location: [address] [address] COMMENT [email or web address] [facility] HPV MRNA E6/E7 Not Detected Not Detected [email or web address] [facility] Comment: Methodology: Bobbin Coil Winder-Mediated Amplification This assay detects E6/E7 viral messenger RNA (mRNA) from 14 high-risk HPV types (16,18,31,33,35,39,45,51,52,56,58,59,66,68). Cervical sources are required for HPV testing. If a vaginal source from a patient who has had a total hysterectomy with removal of cervix was submitted, please contact the testing laboratory for alternative testing options. For additional information, please refer to http://Colectica.Offerti/faq/KBR403a8 (This link if provided for information/ educational purposes only.) Swab Cervix uteri structure / Unknown 11/25/2024 1:53 PM EDT 11/26/2024 9:48 AM EDT Narrative [employer] - 11/27/2024 10:57 AM EDT EXPLANATORY NOTE: The Pap is a screening test for cervical cancer. It is not a diagnostic test and is subject to false negative and false positive results. It is most reliable when a satisfactory sample, regularly obtained, is submitted with relevant clinical findings and history, and when the Pap result is evaluated along with historic and current clinical information. The analytical performance characteristics of this assay, when used to test SurePath(TM) specimens have been determined by [employer]. The modifications have not been cleared or approved by the FDA. This assay has been validated pursuant to the CLIA regulations and is used for clinical purposes. For additional information, please refer to https://Colectica.Offerti/faq/YPM072 (This link is being provided for information/ educational purposes only.) Maria Isabel Hartley MD LAB - PATHOLOGY AND CYTOLOGY AMB ULATORY Final Result [employer] [address] [place] [address] [place] [address], [email or web address] [facility] [address] [place] [address] * HGBA1C W/MPG (06/27/2024 3:45 PM EST) Pathologist [facility] HEMOGLOBIN A1C 5.5 <5.7 % of total Hgb [employer] [facility] Comment: For the purpose of screening for the presence of diabetes: <5.7% Consistent with the absence of diabetes 5.7-6.4% Consistent with increased risk for diabetes (prediabetes) > or =6.5% Consistent with diabetes This assay result is consistent with a decreased risk of diabetes. Currently, no consensus exists regarding use of hemoglobin A1c for diagnosis of diabetes in children. According to [place] Diabetes Association (ADA) guidelines, hemoglobin A1c <7.0% represents optimal control in non- diabetic patients. Different metrics may apply to specific patient populations. Standards of Medical Care in Diabetes(ADA). MEAN PLASMA GLUCOSE 119 mg/dL (calc) [employer] [facility] Blood Blood / Unknown 06/27/2024 3 :45 PM EST 06/27/2024 3:45 PM EST Narrative [employer] [facility] - 06/28/2024 3:24 AM EST FASTING:NO Neyda Salas [facility] LAB - BLOOD DRAW Final Result [employer] [address] [address], [employer] [address] [address] * (ABNORMAL) LIPID PANEL (03/06/2024 1:33 PM EDT) [facility] CHOLESTEROL, TOTAL 208(H) <200 mg/dL An[employer] [facility] HDL CHOLESTEROL 45(L) > OR = 50 mg/dL [facility] TRIGLYCERIDES 147 <150 mg/dL Ante [facility] LDL-CHOLESTEROL 136(H) 99 mg/dL (calc) [facility] Comment: Reference range: <100 Desirable range <100 mg/dL for primary prevention; <70 mg/dL for patients with CHD or diabetic patients with > or = 2 CHD risk factors. LDL-C is now calculated using the Hugo-Amador calculation, which is a validated novel method providing better accuracy than the Friedewald equation in the estimation of LDL-C. Hugo DOBSON et al. JAN. 2013;310(19): 3550-9355 (http://education.Darby Smart/faq/PNY458) CHOL/HDLC RATIO 4.6 <5.0 (calc) [facility] NON-HDL CHOLESTEROL 163(H) <130 mg/dL (calc) [facility] Comment: For patients with diabetes plus 1 major ASCVD risk factor, treating to a non-HDL-C goal of <100 mg/dL (LDL-C of <70 mg/dL) is considered a therapeutic option. Blood Blood / Unknown 03/06/2024 1 :33 PM EDT 03/06/2024 1:33 PM EDT Narrative [employer] [facility] - 03/07/2024 4:38 AM EDT FASTING:YES BrightNestadonis Salas [facility] LAB - BLOOD DRAW Final Result Performing Organization Address [facility] de Phone Number [employer] [address] [address], [employer] [address] [address] * (ABNORMAL) HEPATITIS C AB W/RFLX HCV RNA, QT, RT PCR (06/14/2022 10:01 AM EST) HEPATITIS C ANTIBODY REACTIVE( A) NON-REACT PAMELA [employer] [facility] SIGNAL TO CUT-OFF 1.91(H) <1.00 QU [employer] Comment: Based on this result, the sample will be tested for HCV RNA by a Nucleic Acid Amplification Test (NAAT) to determine if the patient has a current active infection. Blood Blood / Unknown 06/14/2022 1 0:01 AM EST 06/14/2022 10:02 AM EST BrightNestadonis Salas [facility] LAB - BLOOD DRAW Edited Result - Final Performing Organization Address [facility] Co de Phone Number [employer] [address] [place] [address], [employer] [address] [place] [address] [address]LOOR,[place] [address] * FTA-ABS, SERUM (05/12/2019 3:30 PM EDT) TREPONEMAL AB NEGATIVE NEGATIVE [facility] 05/12/2019 3:30 PM EDT 05/12/2019 3:59 PM EDT [facility] - 05/12/2019 8:19 PM EDT [employer], [place] [address] Carding Machine Feeder - Betzaida Mann MD PT ID [id number] ORD# [id number] Lizeth Porter PA-C LAB - BLOOD DRAW Final Resul t Performing Organization Address City/[facility]/ZIP [place] [address], * HIV-1 & HIV-2 ANTIBODIES (05/12/2019 3:30 PM EDT) Pathologist [facility] HIV 1 AND 2 ANTIBODY SCREEN NEGATIVE NEGATIVE [facility] Comment: This assay is a 4th generation assay allowing for earlier detection of HIV infection by detecting the presence of the HIV-1 p24 antigen as well as the traditional antibodies to HIV type 1 (including group O) and type 2. Use of a 4th generation assay is the current CDC recommendation for HIV screening. Blood specimen (specimen) Blood / Unknown 05/12/2019 3:30 PM EDT 05/12/2019 3:59 PM EDT [facility] - 05/12/2019 8:47 PM EDT [employer], a member of [address] [address] Carding Machine Feeder - Betzaida Mann MD PT ID [id number] ORD# [id number] Lizeth Porter PA-C LAB - BLOOD DRAW Final Resul t Performing Organization Address City/[facility]/ZIP Co de Phone Number [address] [address] [phone] from Last 3 Months or Most Recently Relevant to Health Maintenance Insurance [employer] DENTAL Member Subscriber Plan / Payer (Ef fective 2017-Present) Name:Jarrett Vital Relation to Subscriber:Self Name:Jarrett Vital Payer ID:[id number] Group ID:Not on file Type:Other Address: [address] [place] [address] [facility] [employer] DENT[employer] Member Subscriber Plan / Payer (Ef fective 2018-Present) Name:Jarrett Vital Relation to Subscriber:Self Name:Jarrett Vital Payer ID:[id number] Group ID:Not on file Type:Medicaid Address: [address] [place], [place] [address] [address] [employer] Member Subscriber Plan / Payer (Ef fective 2023-Present) Name:Jarrett Vital Relation to Subscriber:Self Name:Jarrett Vital Payer ID:[id number] Group ID:Not on file Type:Managed Medicaid Address: [facility] [id number] [place] [address] Care Teams Assembler Small Products Relationship Specialty Start Date End Date Neyda Salas FNP [address] [place] [id number] PCP - General Internal Medicine 06/17/19
--- OUTSIDE RECORDS SUMMARY | 2025-05-28 20:55 | XMS_ITS | Clinical Summary ---
Author Organization [facility] Address [address] [place] [id number] Care Team Providers Care Bank Guard Name Role Phone Unknown Primary Care Provider [phone] Allergies Active Allergy Reactions Criticality Noted Date Comments Penicillins Unknown/Patient and Family Unable to Define Medium 03/31/2017 Medications SUMAtriptan (IMITREX) 100 MG tablet Take 1 tablet by mouth as needed. Active traZODone (DESYREL) 100 MG tablet Take 2 tablets by mouth nightly. Active venlafaxine (EFFEXOR-XR) 150 MG 24 hr capsule Take 1 capsule by mouth daily. Active acetaminophen (TYLENOL) 500 MG tablet Take 500 mg by mouth Every 4 (four) to 6 (six) hours as needed for mild pain. Active clindamycin (CLEOCIN) 150 MG capsuleIndicati ons:Dental abscess Take 3 capsules (450 mg total) by mouth every 8 (eight) hours around the clock. 72 capsule 04/03/2017 Active Active Problems Problem Noted Date Diagnosed Date Dental abscess 03/31/2017 Immunizations Immunization Administration Dates Next Due Tdap 03/31/2017() Family History Medical History Relation Name Comments Hypertension Mother Relation Name Status Comments Mother Social History Tobacco Use Types Packs/Day Years Used Date Smoking Tobacco: Never Smokeless Tobacco: Never Alcohol Use Standard Drinks/Week Comments No 0 (1 standard drink = 0.6 oz pur e alcohol) Comments Unknown Sex and Gender Information Value Date Recorded Sex Assigned at Not on file Legal Sex Female 11:47 PM EDT Gender Identity Not on file Sexual Orientation Not on file Last Filed Vital Signs Vital Sign Reading Time Taken Comments Blood Pressure 120/60 04/03/2017 11:20 AM EDT Pulse 78 04/03/2017 11:20 AM EDT Temperature 36.7 C (98.1 F) 04/03/2017 11:20 AM EDT Respiratory Rate 18 04/03/2017 11:20 AM EDT Oxygen Saturation 99% 04/03/2017 11:20 AM EDT Inhaled Oxygen Concentration - - Weight 89.4 kg (197 lb) 03/31/2017 4:25 PM EDT Height 116 cm (3' 9.67 ) 03/31/2017 4:25 PM EDT Body Mass Index 66.41 03/31/2017 4:25 PM EDT Plan of Treatment Health Maintenance Due Date Last Done Comments Hepatitis C Virus Screening 1986 HIV Screening 1999 DTaP/Tdap/Td Vaccines (1 - Tdap) 2005 Hepatitis B Vaccines (1 of 3 - 19+ 3-dose series) 2005 Pap Smear (Ages 21-65) 2007 Influenza Vaccine 03/06/2025 08/10/2016 COVID-19 Vaccine ( - 2023-2 5 season) 2025 HPV Vaccines (No Doses Required) Completed Pneumococcal Vaccine: Pediat trevor (0-5 Years) and At-Risk Patients (6 to 49 Years) Aged Out No longer eligible b ased on patient's age to complete this topic Insurance * Guarantor: Jarrett Vital Account Type Relation to Patient Date of Phone Billing Address Personal/Family Self 1985 [address] [place] [address] MEDICAID OUT OF STATE [facility] Member Subscriber Plan / Payer (Ef fective 2017-Present) Name:Jarrett Vital Relation to Subscriber:Self Name:Jarrett Vital Payer ID:Not on file Group ID:Not on file Type:Not on file Address: [address] [place] [address] * Guarantor: Jarrett Vital Account Type Relation to Patient Date of Phone Billing Address Personal/Family Self 1985 [address] [place] [address] Advance Directives * Full Code (Latest Code Status on File) Date Activated Date Inactivated Comments 03/31/2017 5:04 AM Question Answer Comments Decision Thoroughly Discussed with: Unable to Di scuss Care Teams Bank Guard Relationship Specialty Start Date End Date Unknown Unknow Provider Address PCP - General 03/31/17
--- OUTSIDE RECORDS SUMMARY | 2025-05-28 20:55 | XMS_ITS | Clinical Summary ---
Author Organization [facility] Address [address] [place] [address] Care Team Providers Care Spray Operator Name Role Phone Unavailable Primary Care Provider Unavailabl e Social History Tobacco Use Types Packs/Day Years Used Date Smoking Tobacco: Never Assessed Comments Unknown Sex and Gender Information Value Date Recorded Sex Assigned at Not on file Legal Sex Female 9:17 PM EDT Gender Identity Not on file Sexual Orientation Not on file Plan of Treatment Health Maintenance Due Date Last Done Comments Depression Screening 1986 SDOH Screening 1986 Disability Screening 1986 Alcohol/Substance Use Screening 1998 Tobacco Screening 1998 Family Planning (PISQ) 2001 HPV Vaccines (1 - 3-dose series) 2001 Hepatitis C Screening 2004 Pap Smear 2007 Cervical Cancer Screening 2016 HPV/Cotest 2016 COVID-19 Vaccine ( season) 2025 Influenza Vaccine (#1) 2025 , 04/10/2017, 08/10/2016 DTaP/Tdap/Td Vaccines (5 - Td or Tdap) 10/29/2033 10/30/2023, 08/31/2022, 06/01/2016, Additional history exists Zoster Vaccines (1 of 2) 2036 RSV Patients and Patients Aged 60 years or older (1 - 1-dose 75+ series) 2061 HIV Screening Completed 05/12/2019 Hepatitis B Vaccines Completed 06/27/2024, 08/10/2016, 06/01/2016 [...] patient's age to complete this topic Meningococcal Vaccine Aged Out No srikanth patsy eligible based on patient's age to complete this topic Pneumococcal Vaccine: Pediatrics (0 to 5 Years) and At-Risk Patients (6 to 49) Years Aged Out No longer eligible based on patient's age to complete this topic RSV under 20 months Aged Out No longe r eligible based on patient's age to complete this topic Rotavirus Vaccines Aged Out No longer eligible based on patient's age to complete this topic
[2025-05-28 22:15] VITALS: BP 121/80; PULSE 78; RESP 16; O2SAT 98
[2025-05-28 22:56] LABS: Appearance Urine Clear; Glucose Urine UA Negative (Negative); PH 8.0 (5.0-9.0); Specific Gravity - Urine 1.020 (1.005-1.025); UMIC TRIGGER UACC YES
[2025-05-28] MEDS: iohexoL 350 MG/ML 100 ML INFUS..BTL IV (22:58)
[2025-05-29 00:20] VITALS: BP 125/83; PULSE 82; RESP 14; TEMP 36.6; O2SAT 96
[2025-05-29 00:27] VITALS: BP 125/83; PULSE 82; RESP 14; TEMP 36.6; O2SAT 96
== END 2025-05-29 00:28 | disposition home or self-care (01) ==
PROVIDERS: Physician Assistant; Physician Assistant Medical; Emergency Provider Emergency Medicine
DX: I88.0 Nonspecific mesenteric lymphadenitis (principal); R10.A1 Flank pain, right side; R10.85 Abdominal pain of multiple sites; R19.7 Diarrhea, unspecified
CPT/HCPCS: 36415; 74177; 76705; 80048; 80076; 81001; 83690; 83735; 84702; 85025; 96374; 99284; 99285; J1885; Q9967

== ENCOUNTER → 2025-05-28 20:48 | Outpatient (BNV) | payer MEDICAID, SELFPAY | PROVIDERS: Emergency Provider Emergency Medicine; Visit Provider Radiology Diagnostic Radiology | DX: I88.0 Nonspecific mesenteric lymphadenitis (principal); K43.9 Ventral hernia without obstruction or gangrene | CPT/HCPCS: 76705 ==